=== PATIENT | female | born 2000 | race American Indian/Alaskan Native ===

== ENCOUNTER 2020-07-26 20:04 | Emergency (ER) | payer MEDICAID ==
[2020-07-26 21:18] VITALS: BP 111/60
--- NOTE | 2020-07-26 21:47 | Emergency Department Report ---
ED HPI - General Chief complaint: Abdominal Pain Stated complaint: 15 WEEKS BLEEDING Time Seen by Provider: 07/26/20 21:39 Source: patient Mode of arrival: Ambulatory Limitations: No Limitations - History of Present Illness Initial comments: 20-year-old morbid obese -Prydeinig female presents to the emergency room complaining of pelvic pain. Patient reports she is currently 15 weeks and has not been followed up by any care. Patient denies any bleeding no vaginal discharge. Reports pain is in lower abdomen and it sharp. Patient reports that she was seen in May at [facility] and had a positive . Patient reports her first [facility] appointment is scheduled for 12 August. MD Complaint: abdominal pain Onset/Timin -: week(s) Radiation: suprapubic Severity: moderate Severity scale (0 -10): 6 Quality: sharp Consistency: constant Improves with: other (Standing) Worsens with: rest Associated symptoms: denies other symptoms Vaginal bleeding: none :: Yes Number of weeks : 15 OB History - Current : no complications Pre- care: none - Related Data : 1 Para: 0 Previous Rx's Medication Instructions Recorded Last Taken Type Nitrofurantoin Emmons/M-Cryst 100 mg PO Q12HR 10 Days #20 capsule 07/27/20 Unknown Rx [Macrobid CAP] Vit-Fe Fumar-FA [ 1 tab PO QDAY #90 tablet 07/27/20 Unknown Rx Vitamin] Allergies Allergy/AdvReac Type Severity Reaction Status Date / Time No Known Allergies Allergy Unverified 07/26/20 21:16 ED Review of Systems ROS: Stated complaint: 15 WEEKS BLEEDING Other details as noted in HPI Comment: All other systems reviewed and negative Constitutional: no symptoms reported. denies: chills, fever ED Past Medical Hx - Past Medical History Previous Medical History?: No - Medications Home Medications: Home Medications Medication Instructions Recorded Confirmed Last Taken Type Nitrofurantoin Emmons/M-Cryst 100 mg PO Q12HR 10 Days #20 capsule 07/27/20 Unknow n Rx [Macrobid CAP] Vit-Fe Fumar-FA [ 1 tab PO QDAY #90 tablet 07/27/20 Unknown Rx Vitamin] ED Physical Exam - General Limitations: No Limitations General appearance: alert, in no apparent distress - Head Head exam: Present: atraumatic, normocephalic - Eye Eye exam: Present: normal appearance - ENT ENT exam: Present: mucous membranes moist - Neck Neck exam: Present: normal inspection - Respiratory Respiratory exam: Absent: accessory muscle use - Cardiovascular Cardiovascular Exam: Present: regular rate, normal rhythm. Absent: systolic murmur, diastolic murmur, rubs, gallop - GI/Abdominal GI/Abdominal exam: Present: soft. Absent: distended, tenderness, guarding - Extremities Exam Extremities exam: Present: normal inspection, full ROM - Neurological Exam Neurological exam: Present: alert, oriented X3 - Psychiatric Psychiatric exam: Present: normal affect, normal mood - Skin Skin exam: Present: warm, dry, intact, normal color. Absent: rash ED Course Vital Signs 07/26/20 21:16 Temperature 99.6 F Pulse Rate 88 Respiratory 18 Rate Blood Pressure 111/60 O2 Sat by Pulse 99 Oximetry ED Medical Decision Making - Lab Data Result diagrams: 07/26/20 21:44 07/26/20 21:44 Laboratory Tests 07/26/20 07/26/20 07/26/20 21:44 21:44 21:44 WBC 7.8 RBC 4.35 Hgb 10.4 Hct 31.6 MCV 73 L MCH 24 L MCHC 33 RDW 18.9 H Plt Count 260 Lymph % (Auto) 19.8 Emmons % (Auto) 8.5 H Eos % (Auto) 1.2 Baso % (Auto) 0.6 Lymph # (Auto) 1.5 Emmons # (Auto) 0.7 Eos # (Auto) 0.1 Baso # (Auto) 0.0 Seg Neutrophils % 69.9 Seg Neutrophils # 5.5 Sodium 135 L Potassium 4.1 Chloride 102.3 Carbon Dioxide 22 Anion Gap 15 BUN 8 Creatinine 0.7 Estimated GFR > 60 BUN/Creatinine Ratio 11 Glucose 85 Calcium 9.1 Total Bilirubin < 0.20 AST 12 ALT 9 Alkaline Phosphatase 70 Total Protein 6.3 Albumin 3.7 L Albumin/Globulin Ratio 1.4 HCG, Quant 61765 H Urine Color Urine Turbidity Urine pH Ur Specific Campus Urine Protein Urine Glucose (UA) Urine Ketones Urine Blood Urine Nitrite Urine Bilirubin Urine Urobilinogen Ur Leukocyte Esterase Urine WBC (Auto) Urine RBC (Auto) U Epithel Cells (Auto) Urine Bacteria (Auto) Urine Mucus Urine Yeast (Budding) 07/26/20 Unknown WBC RBC Hgb Hct MCV MCH MCHC RDW Plt Count Lymph % (Auto) Emmons % (Auto) Eos % (Auto) Baso % (Auto) Lymph # (Auto) Emmons # (Auto) Eos # (Auto) Baso # (Auto) Seg Neutrophils % Seg Neutrophils # Sodium Potassium Chloride Carbon Dioxide Anion Gap BUN Creatinine Estimated GFR BUN/Creatinine Ratio Glucose Calcium Total Bilirubin AST ALT Alkaline Phosphatase Total Protein Albumin Albumin/Globulin Ratio HCG, Quant Urine Color Yellow Urine Turbidity Cloudy Urine pH 7.0 Ur Specific Campus 1.017 Urine Protein <15 mg/dl Urine Glucose (UA) Neg Urine Ketones Neg Urine Blood Neg Urine Nitrite Neg Urine Bilirubin Neg Urine Urobilinogen 4.0 Ur Leukocyte Esterase Tr Urine WBC (Auto) 21.0 H Urine RBC (Auto) 10.0 U Epithel Cells (Auto) 8.0 Urine Bacteria (Auto) 1+ Urine Mucus Few Urine Yeast (Budding) 2+ - Radiology Data Radiology results: report reviewed [facility] [address] [place] [address] Ultrasound Report Signed Patient: MARCELINO WHATLEY MR#: [id number] : 2000 Acct:[id number] Age/Sex: 20 / F ADM Date: 07/26/20 Loc: ED Attending Dr: Ordering Physician: KATHYA BARDALES Date of Service: 07/26/20 Procedure(s): US OB >= 14 weeks Fetus Accession Number(s): [id number] cc: KATHYA BARDALES ULTRASOUND OBSTETRIC INDICATION / CLINICAL INFORMATION: pelvic pain, no care. Clinical Gestational Age (GA): 14 week 4 day TECHNIQUE: Transabdominal. COMPARISON: None available. FINDINGS: There is a single intrauterine . Biparietal Diameter = 2.6 cm = 14 weeks, 4 day(s). Head Circumference = 9.8 cm = 14 weeks, 4 day(s). Abdominal Circumference = 7.5 cm = 14 weeks, 0 day(s). Femur Length = 1.4 cm = 14 weeks, 1 day(s). Average Ultrasound Age (AUA) = 14 weeks, 2 day(s). Heart Rate: 150 beats per minute. It is too early for detailed anatomic survey. Position: breech. Cervix: closed. Length in cm (if measured): 3.0 Placenta: Posterior fundal and free of the os. Amniotic Fluid Volume: normal IMPRESSION: 1. Single, living intrauterine with estimated sonographic age of 14 weeks, 2 day(s). 2. No significant sonographic abnormality. Signer Name: Naya Phelps MD Signed: 07/27/2020 12:18 AM Workstation Name: [id number] Transcribed By: [facility] Dictated By: Naya Phelps MD Electronically Authenticated By: Naya Phelps MD Signed Date/Time: 07/27/2017 DD/ TD/TT: - Medical Decision Making 20-year-old morbid obese -Prydeinig female presents to the emergency room complaining of pelvic pain. Patient reports she is currently 15 weeks and has not been followed up by any care. Patient denies any bleeding no vaginal discharge. Reports pain is in lower abdomen and it sharp. Patient reports that she was seen in May at [facility] and had a positive . Patient reports her first [facility] appointment is scheduled for 12 August. Ultrasound shows you are 14 weeks and 2 days . Urinalysis shows urinary tract infection with trace leukoesterase 21 of WBCs 1+ bacteria. Will be treated with Macrobid 100 mg p.o. twice daily for 10 days. Tylenol as needed for pain management. Follow-up with an [facility] I have listed several below for your convenience. Critical care attestation.: If time is entered above; I have spent that time in minutes in the direct care of this critically ill patient, excluding procedure time. ED Disposition Clinical Impression: UTI (urinary tract infection) during , Pelvic pain, Disposition: DC-01 TO HOME OR SELFCARE Is pt being admited?: No Does the pt Need Aspirin: No Condition: Stable Instructions: Abdominal Pain (ED) Additional Instructions: Ultrasound shows you are 14 weeks and 2 days . Urinalysis shows urinary tract infection Will be treated with Macrobid 100 mg p.o. twice daily for 10 days. Tylenol as needed for pain management. Follow-up with an [facility] I have listed several below for your convenience. Prescriptions: Nitrofurantoin Emmons/M-Cryst [Macrobid CAP] 100 mg PO Q12HR 10 Days #20 capsule Vit-Fe Fumar-FA [ Vitamin] 1 tab PO QDAY #90 tablet Referrals: PRIMARY CARE, [Primary Care Provider] - 3-5 Days [facility] [Provider Group] - 3-5 Days [facility] [Provider Group] - 3-5 Days [facility] [Provider Group] - 3-5 Days [facility] [Provider Group] - 3-5 Days Forms: Work/School Release Form(ED)
[2020-07-26 22:08] LABS: Basophils % (Auto) 0.6 % (0.0-1.8); Eosinophils # (Auto) 0.1 K/mm3 (0.0-0.4); Eosinophils % (Auto) 1.2 % (0.0-4.3); Hematocrit 31.6 % (30.3-42.9); Hemoglobin 10.4 gm/dl (10.1-14.3); Lymphocytes # (Auto) 1.5 K/mm3 (1.2-5.4); Lymphocytes % (Auto) 19.8 % (13.4-35.0); Mean Corpuscular HGB Conc 33 % (30-34); Mean Corpuscular Volume 73 fl (79-97); Monocytes # (Auto) 0.7 K/mm3 (0.0-0.8); Monocytes % (Auto) 8.5 % (0.0-7.3); Platelet Count 260 K/mm3 (140-440); Red Blood Count 4.35 M/mm3 (3.65-5.03); Red Cell Distribution Width 18.9 % (13.2-15.2)
[2020-07-26 22:21] LABS: Alanine Aminotransferase 9 units/L (7-56); Albumin 3.7 g/dL (3.9-5); Blood Urea Nitrogen 8 mg/dL (7-17); Calcium 9.1 mg/dL (8.4-10.2); Hemolysis Index 0
[2020-07-26 22:22] LABS: BUN/Creatinine Ratio 11
[2020-07-26 22:25] LABS: Bacteria,Urine 1+ /HPF (Negative); Bilirubin,Urine NEG (Negative); Blood,Urine NEG (Negative); Color,Urine Yellow (Yellow); Mucus,Urine FEW /HPF; Protein,Urine <15 mg/dL mg/dL (Negative)
--- NOTE | 2020-07-27 00:22 | Ultrasound Report ---
ULTRASOUND OBSTETRIC INDICATION / CLINICAL INFORMATION: pelvic pain, no care. Clinical Gestational Age (GA): 14 week 4 day TECHNIQUE: Transabdominal. COMPARISON: None available. FINDINGS: There is a single intrauterine . Biparietal Diameter = 2.6 cm = 14 weeks, 4 day(s). Head Circumference = 9.8 cm = 14 weeks, 4 day(s). Abdominal Circumference = 7.5 cm = 14 weeks, 0 day(s). Femur Length = 1.4 cm = 14 weeks, 1 day(s). Average Ultrasound Age (AUA) = 14 weeks, 2 day(s). Heart Rate: 150 beats per minute. It is too early for detailed anatomic survey. Position: breech. Cervix: closed. Length in cm (if measured): 3.0 Placenta: Posterior fundal and free of the os. Amniotic Fluid Volume: normal IMPRESSION: 1. Single, living intrauterine with estimated sonographic age of 14 weeks, 2 day(s). 2. No significant sonographic abnormality. Signer Name: Naya Phelps MD Signed: 07/27/2020 12:18 AM Workstation Name: [id number]
== END 2020-07-26 23:30 | disposition home or self-care (01) ==
LOC: ED 20:04
DX: O23.42 Unspecified infection of urinary tract in pregnancy, second trimester (principal); Z3A.15 15 weeks gestation of pregnancy; Z79.899 Other long term (current) drug therapy
CPT/HCPCS: 36415; 76805; 80053; 81001; 84702; 85025; 87086

== ENCOUNTER 2020-09-20 10:35 | Outpatient (CLI) | payer MEDICAID ==
[2020-09-20] MEDS ORDERED: LACTATED RINGERS 1,000 ML IV ONE (11:11)
[2020-09-20 11:26] VITALS: BP 99/56
--- NOTE | 2020-09-20 12:43 | Ultrasound Report ---
ULTRASOUND OBSTETRIC INDICATION / CLINICAL INFORMATION: leaking. TECHNIQUE: Transabdominal. COMPARISON: None available. FINDINGS: There is a single intrauterine . Biparietal Diameter = 5.7 cm = 23.4 weeks.days Head Circumference = 20.5 cm = 22.4 weeks.days Abdominal Circumference = 19.1 cm = 23.6 weeks.days Femur Length = 4.2 cm = 24.0 weeks.days Average Ultrasound Age (AUA) = 23.4 weeks.days Heart Rate: 141 beats per minute. Estimated Weight in grams (if calculated): 629 Estimated Weight Growth Percentile (if calculated): 93 Position: cephalic. Cervix: Not visualized. Amniotic Fluid Volume: Subjectively normal Maternal Adnexa: Not visualized IMPRESSION: 1. Single, living intrauterine with estimated sonographic age of 23.4 weeks.days 2. No significant sonographic abnormality. Signer Name: Niko Mcbride MD Signed: 09/20/2020 12:39 PM Workstation Name: [id number]
[2020-09-20 13:06] LABS: Bilirubin,Urine NEG (Negative); Blood,Urine NEG (Negative); Calcium Oxalate Crystals,Urine 1+; Color,Urine Yellow (Yellow); Mucus,Urine 1+ /HPF
== END 2020-09-20 13:00 | disposition home or self-care (01) ==
LOC: TRG 10:35 → APU 10:37 → TRG 13:00
PROVIDERS: ATTEND Obstetrics & Gynecology
DX: Z34.92 Encounter for supervision of normal pregnancy, unspecified, second trimester (principal); Z3A.22 22 weeks gestation of pregnancy
CPT/HCPCS: 36415; 76816; 81001; 82731; 84112

== ENCOUNTER 2020-11-30 18:13 | Outpatient (CLI) | payer MEDICAID ==
[2020-11-30 19:26] VITALS: BP 122/77
[2020-11-30] MEDS ORDERED: LACTATED RINGERS 1,000 ML IV ONE (19:36)
[2020-11-30 20:01] LABS: Bilirubin,Urine NEG (Negative); Blood,Urine NEG (Negative); Color,Urine Yellow (Yellow); Mucus,Urine FEW /HPF; Protein,Urine <15 mg/dL mg/dL (Negative)
== END 2020-11-30 20:23 | disposition home or self-care (01) ==
LOC: TRG 18:13 → APU 18:23 → TRG 20:23
PROVIDERS: ATTEND Obstetrics & Gynecology
DX: Z34.93 Encounter for supervision of normal pregnancy, unspecified, third trimester (principal); Z3A.32 32 weeks gestation of pregnancy
CPT/HCPCS: 59025; 81001; 87086

== ENCOUNTER 2020-12-11 10:46 | Outpatient (CLI) | payer MEDICAID ==
[2020-12-11] MEDS ORDERED: LACTATED RINGERS 1,000 ML IV ONE (11:03)
[2020-12-11 11:09] VITALS: BP 130/64
[2020-12-11 13:45] LABS: Bacteria,Urine 2+ /HPF (Negative); Bilirubin,Urine NEG (Negative); Blood,Urine NEG (Negative); Color,Urine Yellow (Yellow); Mucus,Urine FEW /HPF
== END 2020-12-11 14:20 | disposition home or self-care (01) ==
LOC: TRG 10:46 → APU 10:49 → TRG 14:20
PROVIDERS: ATTEND Student in an Organized Health Care Education/Training Program
DX: O42.913 Preterm premature rupture of membranes, unspecified as to length of time between rupture and onset of labor, third trimester (principal); R10.2 Pelvic and perineal pain; Z3A.34 34 weeks gestation of pregnancy
CPT/HCPCS: 36415; 59025; 81001; 84112; 87086

== ENCOUNTER 2021-01-13 18:13 | Outpatient (CLI) | payer MEDICAID ==
[2021-01-13 19:40] VITALS: BP 126/66
== END 2021-01-13 21:00 | disposition home or self-care (01) ==
LOC: TRG 18:13 → APU 18:14 → TRG 21:00
PROVIDERS: ATTEND Obstetrics & Gynecology
DX: Z34.93 Encounter for supervision of normal pregnancy, unspecified, third trimester (principal); Z3A.39 39 weeks gestation of pregnancy
CPT/HCPCS: 36415; 59025; 84112